=== PATIENT | male | born 1955 | race Caucasian/White ===

== ENCOUNTER → 2016-06-17 | Outpatient (CLI) | payer BC, OTHER ==
[~2016-06-17] MED LIST: WARF6TAB PO
--- NOTE | 2016-06-17 16:52 | Diagnostic Imaging Report ---
INDICATION: Fell, ankle pain. EXAMINATION: Left ankle at 2:33 p.m. Three views were obtained. FINDINGS: There is no fracture, dislocation or acute bony abnormality evident. The ankle mortise is not widened and the talar dome is smooth. There is mild soft tissue edema about the ankle joint. IMPRESSION: There is no evidence for an acute bony abnormality. Dictated by: Dictated on workstation # [id number]
== END ==
LOC: RAD 14:09
PROVIDERS: ATTEND Nurse Practitioner Family
DX: M25.572 Pain in left ankle and joints of left foot (principal)
CPT/HCPCS: 73610

== ENCOUNTER → 2020-04-06 | Outpatient (CLI) | payer OTHER ==
[~2020-04-06] MED LIST changes: +CITA20TA12 PO; +DIPH25CA79 PO; +IBUP-2185 PO; +WRF5T PO; +ZOLP10TA PO
--- NOTE | 2020-04-06 17:08 | Diagnostic Imaging Report ---
INDICATION: Neck pain FINDINGS: There is severe degenerative disc space narrowing, endplate sclerosis and osteophytes greatest at C5-C6 and C6-C7. Prevertebral space normal. Cervical body heights maintained. There is mid to lower sclerotic facet arthrosis. The odontoid intact. No fracture detected. There is faint vascular calcifications along the right carotid. IMPRESSION: Lower cervical spondylosis and facet arthrosis but no fracture, malalignment or acute abnormality. Probable carotid atherosclerotic disease on the right. Dictated by: Dictated on workstation # [id number]
--- NOTE | 2020-04-06 17:17 | Diagnostic Imaging Report ---
INDICATION: Back pain AP and lateral views of the thoracic spine are obtained. The thoracic vertebrae are normal in height and alignment. There is diffuse degenerative endplate change throughout the thoracic spine, but no compression deformity. There are small osteophytes throughout the mid thoracic spine. IMPRESSION: Diffuse degenerative findings in the thoracic spine with no acute appearing abnormality. Dictated by: Dictated on workstation # [id number]
== END ==
LOC: RAD 15:46
DX: M47.813 Spondylosis without myelopathy or radiculopathy, cervicothoracic region (principal)
CPT/HCPCS: 72040; 72070

== ENCOUNTER 2021-01-04 15:49 | Outpatient (RCR) | payer OTHER | END 2021-01-04 17:00 | disposition home or self-care (01) | PROVIDERS: ATTEND Student in an Organized Health Care Education/Training Program | DX: M62.542 Muscle wasting and atrophy, not elsewhere classified, left hand (principal); R53.1 Weakness; Z98.1 Arthrodesis status ==

== ENCOUNTER 2021-01-26 05:40 | Outpatient (CLI) | payer OTHER ==
[~2021-01-26] VITALS: Ht 177.8 cm; Wt 92.2 kg
== END 2021-01-26 14:30 | disposition home or self-care (01) ==
LOC: PREOP 05:40
PROVIDERS: ATTEND Surgery
DX: Z01.818 Encounter for other preprocedural examination (principal)

== ENCOUNTER 2021-02-02 09:49 | Day surgery (SDC) | payer OTHER ==
[~2021-02-02] VITALS: Ht 177.8 cm; Wt 92.2 kg
[2021-02-02] MEDS ORDERED: LACTATED RINGERS 1,000 ML IV STA (09:52)
[2021-02-02 10:00] VITALS: BP 125/82
[2021-02-02] MEDS ORDERED: LIDOCAINE JELLY 2% 6 ML SYRINGE MM PRN (10:00)
--- NOTE | 2021-02-02 10:04 | Conscious Sedation/ASA ---
Conscious Sedation Pre-Proced Time 10:00 ASA Score 2 For ASA 3 and 4: Consider anesthesia and medical clearance. Also, for patients with a history of failed moderate sedation consider anesthesia. Airway Lungs Heart ASA score ASA 1: a normal healthy patient ASA 2: a patient with a mild systemic disease (mid diabetes, controlled hypertension, obesity ASA 3: a patient with a severe systemic disease that limits activity (angina, COPD, prior Myocardial infarction) ASA 4: a patient with an incapacitating disease that is a constant threat to life (CHF, renal failure) ASA 5: a moribund patient not expected to survive 24 hrs. (ruptured aneurysm) ASA 6: a declared brain- patient whose organs are being harvested. For emergent operations, add the letter E after the classification Mallampati Classification Grade 2 Sedation Plan Analgesia, Amnesia, Plan communicated to team members, Discussed options with patient/fam, Discussed risks with patient/fam The patient is an appropriate candidate to undergo the planned procedure, sedation, and anesthesia. The patient immediately re-assessed prior to indication. ARIS FERRARA MD Feb 02, 2021 10:04
--- NOTE | 2021-02-02 10:05 | Progress Note-Pre Operative ---
Pre-Operative Progress Note H&P Reviewed The H&P was reviewed, patient examined and no changes noted. Date Seen by Provider: Feb 02, 2021 Time Seen by Provider: 10:00 Date H&P Reviewed: Feb 02, 2021 Time H&P Reviewed: 10:00 Pre-Operative Diagnosis: screening ARIS Null MD Feb 02, 2021 10:05
--- NOTE | 2021-02-02 10:06 | Discharge Inst-Surgical ---
D/C Lap Instructions-ALEM Follow Up Activity as tolerated High Fiber Diet 25g or more per day Avoid Alcohol, Caffeine, Spicy [place] and Acid foods. Drink 64 fluid oz or more of fluids per day. Symptoms to Report: Fever over 101 degree F, Nausea/Vomiting If any problems/questions: Contact your physician or go to Emergency Room ARIS FERRARA MD Feb 02, 2021 10:06
[2021-02-02] MEDS ORDERED: ONDANSETRON 4 MG (ZOFRAN) ORAL DISSOLVE TAB PO PRN (10:15)
[2021-02-02] MEDS ORDERED: ONDANSETRON 4 MG/2 ML (SDV) Z0FRAN IVP PRN (10:15)
[2021-02-02] MEDS ORDERED: PROPOFOL INJECTION 50 ML IV ONE (10:44)
[2021-02-02 11:20] VITALS: BP 115/61
--- NOTE | 2021-02-02 11:20 | Anesthesia-General Post-Op ---
MAC Patient Condition Mental Status/LOC: Same as Preop Cardiovascular: Satisfactory Nausea/Vomiting: Absent Respiratory: Satisfactory Pain: Controlled Complications: Absent Post Op Complications Complications None Follow Up Care/Instructions Patient Instructions None needed. Anesthesiology Discharge Order Discharge Order Patient is doing well, no complaints, stable vital signs, no apparent adverse anesthesia problems. No complications reported per nursing. CODEY HERNANDEZ CRNA Feb 02, 2021 11:20
[2021-02-02 11:25] VITALS: BP 120/65
--- NOTE | 2021-02-02 11:29 | Progress Note-Post Operative ---
Post-Operative Progess Note Surgeon (s)/Manager Services (s) Surgeon ARIS FERRARA MD Manager Services: none Pre-Operative Diagnosis screening colo Post-Operative Diagnosis normal colon and rectum Procedure & Operative Findings Date of Procedure 02/02/21 Procedure Performed/Findings colonoscopy Anesthesia Type mac Estimated Blood Loss Estimated blood loss (mL): minimal Specimens/Packing Specimens Removed none ARIS FERRARA MD Feb 02, 2021 11:29
[2021-02-02 11:55] VITALS: BP 120/68
[2021-02-02 11:57] VITALS: BP 120/68
--- NOTE | 2021-02-02 17:06 | OPERATIVE REPORT ---
DATE OF SERVICE: 02/02/2021 ATTENDING PRIMARY CARE PHYSICIAN: Vin Murray MD PREOPERATIVE DIAGNOSIS: Screening colonoscopy. POSTOPERATIVE DIAGNOSIS: Normal colon and rectum. PROCEDURE: Colonoscopy. SURGEON: Aris Ferrara MD. ANESTHESIA: Monitored anesthesia care. ESTIMATED BLOOD LOSS: Minimal. FINDINGS: Normal colon and rectum. DISPOSITION: The patient tolerated the procedure well. INDICATIONS: The patient is a 65-year-old male referred over to us for a screening colonoscopy. His last one was approximately 12 to 13 years ago and believes this to be normal. He states that he is doing well, does not report any major issues with diarrhea nor constipation as well as no red blood per rectum nor any dark tarry stools. He also does not report any family history of colon cancer. DESCRIPTION OF PROCEDURE: The patient was brought to the endoscopy suite, laid in the left lateral decubitus position. After adequate IV pain and sedative medications and monitored anesthesia care, a digital rectal examination was performed. No significant hemorrhoids identified. Normal sphincter tone was felt and there were no palpable masses. Prostate gland was palpable and appeared normal. The endoscope was then intubated and anus and rectum gently insufflated. The endoscope was then advanced through the valves of [place] of the rectum with no polyps or any neoplasms identified. Through the sigmoid colon, no diverticulosis identified. The endoscope was then advanced to the remainder of the descending, transverse and ascending colon to the cecum, which were normal. There were no polyps or any neoplasms identified throughout the colon or rectum. The endoscope was then slowly withdrawn while taking a second look and suctioning of residual air with no additional findings. The patient tolerated the procedure well. We will recommend continued medical management with a high-fiber diet with a fiber supplement, which should equal or exceed 30 grams daily as well as significant amounts of water to promote soft stools on a daily basis and if he is asymptomatic, he does not need another colonoscopy for another 10 years. Job ID: [id number] DocumentID: [id number] Dictated Date: 02/02/2021 11:26:25 Sexual Health Physician Date: 02/02/2021 17:05:20 Dictated By: ARIS FERRARA MD
== END 2021-02-02 12:10 | disposition home or self-care (01) ==
LOC: ENDO 09:49
PROVIDERS: ATTEND Surgery
DX: Z12.11 Encounter for screening for malignant neoplasm of colon (principal); F32.A Depression, unspecified; G47.00 Insomnia, unspecified; E66.9 Obesity, unspecified; Z86.73 Personal history of transient ischemic attack (TIA), and cerebral infarction without residual deficits; Z68.30 Body mass index [BMI] 30.0-30.9, adult; Z88.5 Allergy status to narcotic agent; Z79.899 Other long term (current) drug therapy; Z79.01 Long term (current) use of anticoagulants; Z87.891 Personal history of nicotine dependence; Z98.1 Arthrodesis status